=== PATIENT | male | born 1980 | race Caucasian/White ===

== ENCOUNTER 2019-11-08 12:18 | Emergency (ER) | payer BC ==
[~2019-11-08] VITALS: Ht 175.3 cm; Wt 70.3 kg
[2019-11-08] MEDS ORDERED: REVATIO20 MG PO (12:27)
== END 2019-11-08 13:58 | disposition home or self-care (01) ==
LOC: ER 12:18
DX: H60.8X2 Other otitis externa, left ear (principal)

== ENCOUNTER 2021-01-29 14:42 | Emergency (ER) | payer BC ==
[~2021-01-29] VITALS: Ht 162.6 cm; Wt 75.7 kg
[~2021-01-29 14:42] MED LIST: REVATIO20 MG PO
[2021-01-29] MEDS ORDERED: NAPROXEN SODIU275 MG PO (16:27)
[2021-01-29] MEDS ORDERED: INTESTINEX680 M2 PO (16:27)
[2021-01-29] MEDS ORDERED: CLINDAMYCIN HC300 MG PO (16:27)
== END 2021-01-29 16:31 | disposition home or self-care (01) ==
LOC: ER 14:42
DX: H66.92 Otitis media, unspecified, left ear (principal)

== ENCOUNTER 2021-02-12 17:00 | Outpatient (CLI) | payer BC ==
[~2021-02-12 17:00] MED LIST changes: +CLINDAMYCIN HC300 MG PO; +INTESTINEX680 M2 PO; +NAPROXEN SODIU275 MG PO
== END 2021-02-12 17:04 | disposition home or self-care (01) ==
LOC: OFIC 805 17:00
PROVIDERS: ATTEND Otolaryngology
DX: G50.1 Atypical facial pain (principal); R09.81 Nasal congestion; J32.8 Other chronic sinusitis; G44.89 Other headache syndrome

== ENCOUNTER 2021-02-28 10:00 | Outpatient (CLI) | payer BC | END 2021-02-28 11:05 | disposition home or self-care (01) | LOC: OFIC 805 10:00 | PROVIDERS: ATTEND Otolaryngology Otology & Neurotology | DX: H60.8X2 Other otitis externa, left ear (principal); H66.93 Otitis media, unspecified, bilateral; H69.83 Other specified disorders of Eustachian tube, bilateral ==

== ENCOUNTER 2021-03-26 14:54 | Outpatient (CLI) | payer BC | END 2021-03-26 15:36 | disposition home or self-care (01) | LOC: OFIC 805 14:54 | PROVIDERS: ATTEND Otolaryngology Otology & Neurotology | DX: H73.813 Atrophic flaccid tympanic membrane, bilateral (principal); H69.83 Other specified disorders of Eustachian tube, bilateral ==

== ENCOUNTER 2021-03-28 13:09 | Outpatient (CLI) | payer BC | END 2021-03-28 13:11 | disposition home or self-care (01) | LOC: TOM 13:09 | PROVIDERS: ATTEND Otolaryngology Otology & Neurotology | DX: H60.93 Unspecified otitis externa, bilateral (principal) ==

== ENCOUNTER 2021-04-02 14:25 | Outpatient (CLI) | payer OTHER | END 2021-04-02 15:10 | disposition home or self-care (01) | LOC: OFIC 805 14:25 | PROVIDERS: ATTEND Otolaryngology Otology & Neurotology | DX: H73.813 Atrophic flaccid tympanic membrane, bilateral (principal); H68.103 Unspecified obstruction of Eustachian tube, bilateral; H92.02 Otalgia, left ear ==

== ENCOUNTER 2023-11-03 11:24 | Outpatient (CLI) | payer BC | END 2023-11-03 11:33 | disposition home or self-care (01) | LOC: RAD 11:24 | PROVIDERS: ATTEND General Practice | DX: M25.572 Pain in left ankle and joints of left foot (principal); Z88.0 Allergy status to penicillin ==

== ENCOUNTER 2024-07-09 11:49 | Emergency (ER) | payer BC ==
[~2024-07-09] VITALS: Ht 175.3 cm; Wt 86.2 kg
[2024-07-09] MEDS ORDERED: LIPITOR20 MG PO (12:35)
[2024-07-09] MEDS ORDERED: KETOROLAC TROMETHAMINE 30 MG VIAL IM STA (13:34)
[2024-07-09] MEDS ORDERED: KETOROLAC TROMETHAMINE 30 MG VIAL ONE (13:58)
== END 2024-07-09 14:06 | disposition home or self-care (01) ==
LOC: ER 11:50
DX: H60.8X2 Other otitis externa, left ear (principal); Z88.8 Allergy status to other drugs, medicaments and biological substances